=== PATIENT | male | born 1945 | race Caucasian/White ===

== ENCOUNTER 2017-03-10 15:05 | Inpatient (IN) | payer OTHER ==
[~2017-03-10] VITALS: Ht 167.6 cm; Wt 63.7 kg
[~2017-03-10 15:05] MED LIST: ALBUTEROL SULF8.5 GM IH; ASPIR 8181 M1 PO; ATORVASTATIN CA40 MG GT; BISAC-EVAC10 MG PR; CARVEDILOL6.25 MG PO; DUONEB 2.5-0.5 M3 ML AEROSOL; FAMOTIDINE20 MG GT; HYDROCODON-ACE1 EAC9 GT; LEVAQUIN500 MG PO; LISINOPRIL10 MG PO; MEDROL DOSEPAK4 MG PO; PREDNISONE20 MG PO; PROAIR HFA8.5 GM IH; TYLENOL REGULA325 MG GT
[2017-03-10 15:24] LABS: HEMATOCRIT 32.7 % (38.0-50.0); MCH 26.9 PG (29.0-34.0); MCHC 30.3 G/DL (30.0-36.0); MCV 88.9 FL (86-99); MEAN PLAT.VOLUME 9.5 uM^3 (9.0-12.4); NRBC (%) 0.1 /100 WBC (0-0); PLATELET COUNT 209 K/uL (156-360); RBC DIS.WIDTH-CV 15.6 % (11.8-14.6); RBC DIS.WIDTH-SD 50.6 % (39-53); RED BLOOD COUNT 3.68 M/uL (4.00-5.50); WHITE BLOOD COUNT 15.1 K/uL (4.1-10.2)
[2017-03-10 15:29] LABS: BASE EXCESS -14.1 mEq/L (-3 to +3); CARBOXY HGB 2.3 % (0-5); METHEMOGLOBIN 0.8 % (0-1.5)
[2017-03-10 15:30] LABS: BICARBONATE 14.3 mEq/L (22-26); PCO2 43 mm Hg (35-45); PO2 346 mm Hg (80-100)
[2017-03-10 15:31] LABS: COMMENTS - BLOOD GASES +C; DEVICE PB840; FI02 100 %; MECHANICAL RATE 14 resp/min; MODE AC; PEEP 5 CM/H20; SITE LR +A; TIDAL VOLUME 500 ML; TOTAL RESP RATE 23 resp/min; pH 7.13 (7.35-7.45)
[2017-03-10 15:32] LABS: CHLORIDE 99 mEq/L (99-109); INTER. NORMALIZED RATIO 1.4; POTASSIUM 5.1 mEq/L (3.7-5.4); PROTHROMBIN TIME 15.5 SEC (10.2-12.9); SODIUM 135 mEq/L (136-147)
[2017-03-10 15:34] LABS: GLUCOSE 247 mg/dL (70-99)
[2017-03-10 15:35] LABS: ANION GAP 21 MEQ/L (2-14)
[2017-03-10 15:37] LABS: SERUM ETHYL ALCOHOL < 10 mg/dL
[2017-03-10 15:38] LABS: GFR ESTIMATE (CALCULATED) > 59 mL/min/
[2017-03-10 15:39] LABS: UREA NITROGEN (BUN) 21 mg/dL (9-23)
[2017-03-10 15:41] LABS: LIPASE 10 U/L (1.0-51.0)
[2017-03-10 15:44] LABS: TROP-I INTERPRETATION POSITIVE
[2017-03-10 16:05] LABS: TROPONIN-I 5.61 ng/mL (0.0-0.30)
[2017-03-10 16:41] LABS: ABS NEUTROPHIL COUNT 10.5; ANISOCYTOSIS 1+; ATYPICAL LYMPHOCYTE 14.9 %; BAND NEUTROPHILS 15.8 % (0-8.0); BURR CELLS 2+; EOSINOPHIL ABS CT 0.1; EOSINOPHILS 0.9 % (0-5.0); HYPOCHROMASIA 2+; INSTRUMENT ABS NEUTROPHIL CT 10.7 K/uL; LYMPHOCYTES 13.1 % (15.0-45.0); MACROCYTES 1+; METAMYELOCYTES 0.9 %; OVALOCYTES 1+; PLAT.SUFFICIENCY ADEQUATE; POIKILOCYTOSIS 3+; SEG.NEUTROPHILS 53.5 % (46.0-76.0)
[2017-03-10 20:50] VITALS: BP 87/68
[2017-03-18 12:00] LABS: CREATININE 0.8 mg/dL (0.6-1.3); POTASSIUM 4.9 mEq/L (3.7-5.4)
== END 2017-03-10 21:22 ==
LOC: EME 15:05 → EDOF 17:11 → ENRESERV 17:13 → CANRESERV 17:41 → EDOF 21:22
PROVIDERS: Emergency Medicine; Specialist
PROC: 5A1935Z Respiratory Ventilation, Less than 24 Consecutive Hours (ICD-10-PCS; principal; 2017-03-10)
PROC: 05H633Z Insertion of Infusion Device into Left Subclavian Vein, Percutaneous Approach (ICD-10-PCS; 2017-03-10)
PROC: 0BH17EZ Insertion of Endotracheal Airway into Trachea, Via Natural or Artificial Opening (ICD-10-PCS; 2017-03-10)
PROC: 0CJS8ZZ Inspection of Larynx, Via Natural or Artificial Opening Endoscopic (ICD-10-PCS; 2017-03-10)
DX: I46.9 Cardiac arrest, cause unspecified (principal); J96.00 Acute respiratory failure, unspecified whether with hypoxia or hypercapnia; G93.6 Cerebral edema; I21.9 Acute myocardial infarction, unspecified; C34.12 Malignant neoplasm of upper lobe, left bronchus or lung; C77.1 Secondary and unspecified malignant neoplasm of intrathoracic lymph nodes; C79.72 Secondary malignant neoplasm of left adrenal gland; C78.01 Secondary malignant neoplasm of right lung; Z51.5 Encounter for palliative care; Z66 Do not resuscitate; R57.9 Shock, unspecified; C79.31 Secondary malignant neoplasm of brain; E87.2 Acidosis; J98.11 Atelectasis; F17.210 Nicotine dependence, cigarettes, uncomplicated; I11.0 Hypertensive heart disease with heart failure; I50.9 Heart failure, unspecified; I25.10 Atherosclerotic heart disease of native coronary artery without angina pectoris; I49.01 Ventricular fibrillation; Z78.1 Physical restraint status; J44.9 Chronic obstructive pulmonary disease, unspecified; R79.1 Abnormal coagulation profile
CPT/HCPCS: 36600; 70450; 71010; 71275; 80047; 80048; 81003; 82150; 82803; 83605; 83690; 84484; 85025; 85610; 85730; 86850; 86900; 86901; 87040; 87070; 87077; 87181; 87185; 87205; 93005; 94002; 99281; 99285; C1751; G0480; J0282; J7030